=== PATIENT | female | born 1950 | race Caucasian/White ===

== ENCOUNTER 2017-06-05 14:45 | Inpatient (IN) | payer OTHER ==
[~2017-06-05] VITALS: Ht 167.6 cm; Wt 109.6 kg
[2017-07-20 10:19] VITALS: BP 133/69
[2017-07-20 10:20] LABS: BASOPHILS % (AUTO) 0.5 % (0.0-5.0); EOSINOPHILS % (AUTO) 3.3 % (0.0-8.0); HEMATOCRIT 38.8 % (36-48); LYMPHOCYTES % (AUTO) 35.1 % (21.0-51.0); MEAN CORPUSCULAR HEMOGLOBIN 30.2 pg (27.0-33.0); MEAN CORPUSCULAR HGB CONC 33.5 g/dL (32.0-36.0); MEAN CORPUSCULAR VOLUME 90.1 fL (79-99); MONOCYTES % (AUTO) 8.5 % (3.0-13.0); NEUTROPHILS % (AUTO) 52.6 % (40.0-77.0); NUCLEATED RED BLOOD CELLS 0.1 % (0.0-0.19); PLATELET COUNT (AUTO) 190 K/uL (130-400); RED BLOOD CELL COUNT(AUTO) 4.31 MIL/uL (4.00-5.50); WHITE BLOOD COUNT (AUTO) 4.1 K/uL (4.8-10.8)
[2017-07-20 10:28] LABS: CREATININE 0.8 mg/dL (0.5-1.5); POTASSIUM 4.5 mmol/L (3.5-5.1)
[2017-07-20] MEDS ORDERED: GABA-531 PO (12:52)
[2017-07-20] MEDS ORDERED: SIMV20TA6 PO (12:52)
[2017-07-20] MEDS ORDERED: LOSA50TA37 PO (12:52)
[2017-07-20] MEDS ORDERED: LEVO125T11 PO (12:52)
[2017-07-20] MEDS ORDERED: ASPI-1026 PO (12:52)
[2017-07-20] MEDS ORDERED: MVIT PO (12:52)
[2017-07-20] MEDS ORDERED: VIT D PO (12:52)
[2017-07-23] VITALS (26 sets, daily range): BP systolic 87–142; BP diastolic 42–73
[2017-07-23] MEDS ORDERED: CEFAZOLIN SODIUM 1 GM VIAL ONE ×2 (06:05→11:27)
[2017-07-23] MEDS ORDERED: LACTATED RINGERS 1000ML 1,000 ML IV ONE (06:05)
[2017-07-23] MEDS ORDERED: DURAMORPH PF1 MG/ML 10ML AMP IV ONE (06:30)
[2017-07-23] MEDS ORDERED: BUPIVACAINE/PF 0.25% 30ML VIAL IJ ONE (06:30)
[2017-07-23] MEDS ORDERED: EPINEPHRINE 1 MG/ML AMPULE ONE (06:30)
[2017-07-23] MEDS ORDERED: BACITRACIN 50,000 UNIT VIAL ONE (06:31)
[2017-07-23] MEDS ORDERED: THROMBIN-JMI 20000 UNIT KIT TP ONE (06:31)
[2017-07-23] MEDS ORDERED: ONDANSETRON HCL 4 MG/2 ML VIAL ONE (06:45)
[2017-07-23] MEDS ORDERED: DEXAMETHASONE SOD PHOSPHATE 10MG/ML 1ML VIAL ONE (06:45)
[2017-07-23] MEDS ORDERED: PROPOFOL 10 MG/ML 20ML VIAL IV ONE (06:46)
[2017-07-23] MEDS ORDERED: FENTANYL CITRATE PF 50 MCG/1 ML 2ML VIAL ONE ×4 (06:46→11:52)
[2017-07-23] MEDS ORDERED: MIDAZOLAM HCL 1 MG/ML 2ML VIAL ONE ×2 (06:46→07:29)
[2017-07-23] MEDS ORDERED: GLYCOPYRROLATE 0.2 MG/ML 5 ML VIAL ONE (06:46)
[2017-07-23] MEDS ORDERED: SUCCINYLCHOLINE 200MG/10ML SYR ONE ×2 (06:46→11:27)
[2017-07-23] MEDS ORDERED: NEOSTIGMINE METHYLSULFATE 1MG/ML IV ONE (06:46)
[2017-07-23] MEDS ORDERED: LIDOCAINE PF 2% 5ML ABBOJECT ONE (06:46)
[2017-07-23] MEDS ORDERED: EPHEDRINE SULFATE 50 MG/ML AMPULE ONE (06:49)
[2017-07-23] MEDS ORDERED: PHENYLEPHRINE HCL 10 MG/ML 1ML VIAL IV ONE (10:26)
[2017-07-23] MEDS ORDERED: ROCURONIUM BROMIDE 10MG/1ML 5ML VL ONE ×2 (11:27)
[2017-07-23] MEDS ORDERED: CEFAZOLIN 2GM / 50 ML 50 ML IV SCH (12:15)
[2017-07-23] MEDS: DEXAMETHASONE SOD PHOSPHATE 4 MG/ML 1ML VIAL IVP SCH ×3 (12:15→23:53)
[2017-07-23] MEDS ORDERED: MORPHINE SULFATE 2 MG/ML 1ML SYG IVP PRN (12:15)
[2017-07-23] MEDS ORDERED: SODIUM CHLORIDE 0.9% 10 ML VIAL IVP PRN (12:15)
[2017-07-23] MEDS ORDERED: PROMETHAZINE HCL 25 MG/ML 1ML AMPULE IM PRN (12:15)
[2017-07-23] MEDS ORDERED: CEFAZOLIN SODIUM 1 GM VIAL IVP SCH (12:30)
[2017-07-23] MEDS: LACTATED RINGERS 1000ML 1,000 ML IV SCH (17:07)
[2017-07-23] MEDS: HYDROCODONE/ACETAMINOPHEN 5/325 MG TAB PO PRN ×2 (17:08→21:03)
[2017-07-23] MEDS ORDERED: ATORVASTATIN CALCIUM 10 MG TABLET PO SCH (21:00)
[2017-07-23] MEDS: GABAPENTIN 300 MG CAPSULE PO SCH (21:02)
[2017-07-24] MEDS: LACTATED RINGERS 1000ML 1,000 ML IV SCH (01:21)
[2017-07-24] MEDS: HYDROCODONE/ACETAMINOPHEN 5/325 MG TAB PO PRN ×2 (01:22→05:33)
[2017-07-24 04:34] VITALS: BP 116/62
[2017-07-24] MEDS: DEXAMETHASONE SOD PHOSPHATE 4 MG/ML 1ML VIAL IVP SCH (05:32)
[2017-07-24 08:00] VITALS: BP 120/60
[2017-07-24] MEDS ORDERED: VIT D PO SCH (09:00)
[2017-07-24] MEDS ORDERED: LOSARTAN 50 MG TABLET PO SCH (09:00)
[2017-07-24] MEDS ORDERED: MULTIVITAMIN TABLET PO SCH (09:00)
[2017-07-24] MEDS ORDERED: LEVOTHYROXINE 125 MCG TABLET PO SCH (09:00)
[2017-07-24] MEDS ORDERED: ASPIRIN 325 MG TABLET PO SCH (09:00)
[2017-07-24] MEDS: GABAPENTIN 300 MG CAPSULE PO SCH (09:05)
== END 2017-07-24 09:50 | disposition home or self-care (01) | DRG 460 ==
LOC: DAHIP 07-23 05:58 → 4BH 07-23 13:22
PROVIDERS: ADMIT Neurological Surgery; ATTEND Neurological Surgery
PROC: 0SG00AJ Fusion of Lumbar Vertebral Joint with Interbody Fusion Device, Posterior Approach, Anterior Column, Open Approach (ICD-10-PCS; principal; 2017-07-23 07:25)
PROC: 01NB0ZZ Release Lumbar Nerve, Open Approach (ICD-10-PCS; 2017-07-23 07:25)
PROC: BR101ZZ Fluoroscopy of Cervical Spine using Low Osmolar Contrast (ICD-10-PCS; 2017-07-23 07:25)
PROC: 4A11X4G Monitoring of Peripheral Nervous Electrical Activity, Intraoperative, External Approach (ICD-10-PCS; 2017-07-23 07:25)
DX: M48.061 Spinal stenosis, lumbar region without neurogenic claudication (principal); E03.9 Hypothyroidism, unspecified; E66.9 Obesity, unspecified; M47.9 Spondylosis, unspecified; E78.5 Hyperlipidemia, unspecified; G47.30 Sleep apnea, unspecified; M43.16 Spondylolisthesis, lumbar region; Z90.710 Acquired absence of both cervix and uterus; Z68.39 Body mass index [BMI] 39.0-39.9, adult
CPT/HCPCS: 36415; 76000; 80048; 85025; A4218; A4344; J0171; J0330; J0690; J1100; J2001; J2250; J2274; J2370; J2405; J2704; J2710; J3010; J3490; J7120

== ENCOUNTER → 2019-03-01 | Outpatient (CLI) | payer OTHER ==
[~2019-03-01] MED LIST: ASPI-1026 PO; GABA-531 PO; LEVO125T11 PO; LOSA50TA64 PO; MVIT PO; SIMV20TA6 PO; VIT D PO
[2019-03-01 11:59] LABS: CREATININE 0.8 mg/dL (0.5-1.5)
== END | disposition home or self-care (01) ==
LOC: LAB 11:00
PROVIDERS: ATTEND Neurological Surgery
DX: M54.16 Radiculopathy, lumbar region (principal)
CPT/HCPCS: 36415; 82565; 84520

== ENCOUNTER → 2019-03-03 | Outpatient (CLI) | payer OTHER ==
[~2019-03-03] MED LIST changes: +GADODIAMIDE 10 MMOL/20 ML VIAL IV ONE
== END | disposition home or self-care (01) ==
LOC: RAH 10:00
PROVIDERS: ATTEND Neurological Surgery
DX: M51.16 Intervertebral disc disorders with radiculopathy, lumbar region (principal); M48.061 Spinal stenosis, lumbar region without neurogenic claudication
CPT/HCPCS: 72158; A9579

== ENCOUNTER → 2019-05-24 | Outpatient (CLI) | payer OTHER ==
[~2019-05-24] MED LIST changes: -GADODIAMIDE 10 MMOL/20 ML VIAL IV ONE; +SIMV-43 PO; -SIMV20TA6 PO
== END | disposition home or self-care (01) ==
LOC: RAH 08:25
PROVIDERS: ATTEND Physical Medicine & Rehabilitation
DX: M47.26 Other spondylosis with radiculopathy, lumbar region (principal)
CPT/HCPCS: 72110